=== PATIENT | female | born 1985 | race Caucasian/White ===

== ENCOUNTER 2016-09-10 18:52 | Emergency (ER) | payer OTHER ==
[~2016-09-10] VITALS: Ht 154.9 cm; Wt 62.1 kg
[2016-09-10 21:29] VITALS: BP 128/65
== END 2016-09-10 21:30 | disposition home or self-care (01) ==
LOC: ED 18:52
DX: N39.0 Urinary tract infection, site not specified (principal); E11.9 Type 2 diabetes mellitus without complications; Z79.4 Long term (current) use of insulin

== ENCOUNTER 2017-05-14 21:40 | Emergency (ER) | payer OTHER ==
[~2017-05-14] VITALS: Ht 154.9 cm; Wt 56.2 kg
[2017-05-14 21:46] VITALS: Ht 154.9 cm; Wt 56.2 kg
[2017-05-15 02:32] VITALS: BP 134/82
== END 2017-05-15 02:32 | disposition home or self-care (01) ==
LOC: ED 21:40
DX: R51 Headache (principal); N63.0 Unspecified lump in unspecified breast; L29.9 Pruritus, unspecified; E11.9 Type 2 diabetes mellitus without complications; Z88.0 Allergy status to penicillin

== ENCOUNTER 2017-06-29 09:41 | Emergency (ER) | payer OTHER ==
[2017-06-29 13:01] VITALS: BP 128/75
== END 2017-06-29 13:01 | disposition home or self-care (01) ==
LOC: ED 09:41
DX: S29.012A Strain of muscle and tendon of back wall of thorax, initial encounter (principal); E11.9 Type 2 diabetes mellitus without complications; Z88.0 Allergy status to penicillin; V49.88XA Car occupant (driver) (passenger) injured in other specified transport accidents, initial encounter; Y93.89 Activity, other specified; Y99.8 Other external cause status; Y92.89 Other specified places as the place of occurrence of the external cause
CPT/HCPCS: 72072

== ENCOUNTER 2019-04-30 20:49 | Inpatient (IN) | payer OTHER ==
[~2019-04-30] VITALS: Ht 154.9 cm; Wt 54.4 kg
[2019-04-30 21:16] VITALS: Ht 154.9 cm; Wt 54.4 kg
[2019-04-30 21:53] LABS: BASOPHIL % 0.1 % (0-2); PLATELET COUNT 442 x10^3mcL (130-400); RED CELL DISTRIBUTION WIDTH 14.4 % (11.5-14.5)
[2019-04-30 22:10] LABS: BILIRUBIN TOTAL 0.4 mg/dL (0.20-1.00); CALCIUM 9.4 mg/dL (8.5-10.1); CREATININE SERUM 1.5 mg/dL (0.6-1.0)
[2019-04-30 22:17] LABS: CARBON DIOXIDE 8.4 mmol/L (21-32); TOTAL PROTEIN, SERUM 8.4 g/dL (6.4-8.2)
[2019-04-30] MEDS ORDERED: RELION HUMUL100 U/M2 IJ (23:12)
[2019-05-01] VITALS (9 sets, daily range): BP systolic 98–116; BP diastolic 46–65
[2019-05-01 03:03] LABS: BILIRUBIN TOTAL 0.3 mg/dL (0.20-1.00); CALCIUM 8.5 mg/dL (8.5-10.1); CREATININE SERUM 1.2 mg/dL (0.6-1.0); TOTAL PROTEIN, SERUM 6.8 g/dL (6.4-8.2)
[2019-05-01 03:09] LABS: ALBUMIN 3.2 g/dL (3.4-5.0)
[2019-05-01 03:10] LABS: CARBON DIOXIDE 5.6 mmol/L (21-32); POTASSIUM SERUM 5.8 mmol/L (3.5-5.1)
[2019-05-01 07:55] LABS: PLATELET COUNT 356 x10^3mcL (130-400); RED CELL DISTRIBUTION WIDTH 13.8 % (11.5-14.5)
[2019-05-01 08:15] LABS: ALKALINE PHOSPHATASE 73 U/L (46-116); BILIRUBIN TOTAL 0.36 mg/dL (0.20-1.00); CALCIUM 8.3 mg/dL (8.5-10.1); CARBON DIOXIDE 10.1 mmol/L (21-32); CHLORIDE SERUM 109 mmol/L (98-107); CREATININE SERUM 1.2 mg/dL (0.6-1.0); GFR1 55 mL/min; GLUCOSE SERUM 124 mg/dL (74-106); SODIUM SERUM 138 mmol/L (136-145); TOTAL PROTEIN, SERUM 6.3 g/dL (6.4-8.2)
[2019-05-01 08:21] LABS: ALBUMIN 2.9 g/dL (3.4-5.0)
[2019-05-01 08:33] LABS: ALT/SGPT 26 U/L (14-59); AST/SGOT < 5 U/L (15-37)
[2019-05-01 08:36] LABS: BASOPHIL % 0 % (0-2)
[2019-05-01 12:47] LABS: CALCIUM 8.4 mg/dL (8.5-10.1); CARBON DIOXIDE 10.9 mmol/L (21-32); CREATININE SERUM 1.2 mg/dL (0.6-1.0); MAGNESIUM 1.9 mg/dL (1.8-2.4); PHOSPHOROUS 2.8 mg/dL (2.5-4.9); POTASSIUM SERUM 4.4 mmol/L (3.5-5.1)
[2019-05-01 16:12] LABS: CALCIUM 7.8 mg/dL (8.5-10.1); CARBON DIOXIDE 15.2 mmol/L (21-32); CHLORIDE SERUM 106 mmol/L (98-107); CREATININE SERUM 1.1 mg/dL (0.6-1.0); GFR1 > 60 mL/min; GLUCOSE SERUM 152 mg/dL (74-106); MAGNESIUM 1.6 mg/dL (1.8-2.4); PHOSPHOROUS 1.5 mg/dL (2.5-4.9); POTASSIUM SERUM 3.5 mmol/L (3.5-5.1); SODIUM SERUM 134 mmol/L (136-145)
[2019-05-01 20:28] LABS: UA SPECIFIC GRAVITY >=1.030 (1.005-1.035); microscopic required? YES; urine erythrocyte NEGATIVE (NEGATIVE)
[2019-05-01 20:37] LABS: CALCIUM 8.1 mg/dL (8.5-10.1); CHLORIDE SERUM 108 mmol/L (98-107); GFR1 > 60 mL/min; GLUCOSE SERUM 71 mg/dL (74-106); MAGNESIUM 1.7 mg/dL (1.8-2.4); PHOSPHOROUS 1.1 mg/dL (2.5-4.9); SODIUM SERUM 137 mmol/L (136-145)
[2019-05-02 01:13] LABS: CALCIUM 8.3 mg/dL (8.5-10.1); CARBON DIOXIDE 18.4 mmol/L (21-32); CHLORIDE SERUM 107 mmol/L (98-107); CREATININE SERUM 1.1 mg/dL (0.6-1.0); GFR1 > 60 mL/min; GLUCOSE SERUM 100 mg/dL (74-106); MAGNESIUM 2.1 mg/dL (1.8-2.4); POTASSIUM SERUM 3.4 mmol/L (3.5-5.1); SODIUM SERUM 135 mmol/L (136-145)
[2019-05-02 01:20] LABS: PHOSPHOROUS 0.5 mg/dL (2.5-4.9)
[2019-05-02 04:40] VITALS: BP 92/51
[2019-05-02 05:30] LABS: PLATELET COUNT 271 x10^3mcL (130-400); RED CELL DISTRIBUTION WIDTH 13.7 % (11.5-14.5)
[2019-05-02 05:36] LABS: BASOPHIL % 0 % (0-2)
[2019-05-02 05:49] LABS: CARBON DIOXIDE 17.9 mmol/L (21-32); CHLORIDE SERUM 110 mmol/L (98-107); GFR1 > 60 mL/min; GLUCOSE SERUM 98 mg/dL (74-106); POTASSIUM SERUM 3.1 mmol/L (3.5-5.1); SODIUM SERUM 137 mmol/L (136-145)
[2019-05-02 05:52] LABS: PHOSPHOROUS 0.9 mg/dL (2.5-4.9)
[2019-05-02] MEDS ORDERED: LANTUS SOLOS100 U/M1 SQ (06:56)
[2019-05-02 07:44] VITALS: BP 114/63
[2019-05-02 12:00] VITALS: BP 102/60; BP 110/69
[2019-05-02 14:11] VITALS: BP 108/65
[2019-05-02 16:22] VITALS: BP 125/71
[2019-05-02 16:54] VITALS: BP 125/77
== END 2019-05-02 18:20 | disposition home or self-care (01) | DRG 420 ==
LOC: ED 20:49 → IC 23:40
PROVIDERS: Emergency Medicine; Internal Medicine Pulmonary Disease; ADMIT Specialist
DX: E10.10 Type 1 diabetes mellitus with ketoacidosis without coma (principal); N17.9 Acute kidney failure, unspecified; E83.42 Hypomagnesemia; E87.5 Hyperkalemia; F12.10 Cannabis abuse, uncomplicated; E86.9 Volume depletion, unspecified; F17.210 Nicotine dependence, cigarettes, uncomplicated; I10 Essential (primary) hypertension; Z79.4 Long term (current) use of insulin; Z68.22 Body mass index [BMI] 22.0-22.9, adult; Z88.0 Allergy status to penicillin; Z72.89 Other problems related to lifestyle; Z79.899 Other long term (current) drug therapy
CPT/HCPCS: 36600; 82962; 87804; G0378; J1815; J1956; J2270; J2405; J3475; J3480; J3490; J7030

== ENCOUNTER 2019-05-11 14:09 | Emergency (ER) | payer OTHER ==
[~2019-05-11] VITALS: Ht 157.5 cm; Wt 54.9 kg
[~2019-05-11 14:09] MED LIST: LANTUS SOLOS100 U/M1 SQ; RELION HUMUL100 U/M2 IJ
[2019-05-11 14:43] VITALS: BP 90/53; Ht 157.5 cm; Wt 54.9 kg
== END 2019-05-11 15:03 | disposition left against medical advice (07) ==
LOC: ED 14:09
DX: Z53.21 Procedure and treatment not carried out due to patient leaving prior to being seen by health care provider (principal)